=== PATIENT | female | born 1970 | race Caucasian/White ===

== ENCOUNTER 2019-07-04 10:14 | Emergency (ER) | payer OTHER ==
[~2019-07-04] VITALS: Ht 172.7 cm; Wt 85.0 kg
[~2019-07-04 10:14] MED LIST: ALPR-624 PO; METO50TA16 PO; TRAM50TA2 PO
[2019-07-04] MEDS ORDERED: orphenadrine citrate 60mg/2ml inj. IM ONE (12:20)
[2019-07-04] MEDS ORDERED: HYDROcodone/acetaminophen 10/325mg tab PO ONE (12:20)
[2019-07-04 12:48] VITALS: BP 155/91
[2019-07-04] MEDS ORDERED: IBUP-1984 PO (12:48)
[2019-07-04] MEDS ORDERED: HYDR-4353 PO (12:48)
[2019-07-05] MEDS ORDERED: METO25TA6 PO (20:16)
== END 2019-07-04 13:00 | disposition home or self-care (01) ==
LOC: ER 10:15
DX: M54.41 Lumbago with sciatica, right side (principal); I10 Essential (primary) hypertension; Z98.890 Other specified postprocedural states; Z88.1 Allergy status to other antibiotic agents; Z79.899 Other long term (current) drug therapy
CPT/HCPCS: 72100; 96372; 99283; J2360

== ENCOUNTER 2019-07-05 19:13 | Emergency (ER) | payer OTHER ==
[~2019-07-05] VITALS: Ht 172.7 cm; Wt 79.5 kg
[~2019-07-05 19:13] MED LIST changes: +HYDR-4353 PO; +IBUP-1984 PO
[2019-07-05] MEDS ORDERED: METO25TA6 PO (20:16)
[2019-07-05 20:36] VITALS: BP 164/100
== END 2019-07-05 20:30 | disposition home or self-care (01) ==
LOC: ER 19:14
DX: I10 Essential (primary) hypertension (principal); Z98.890 Other specified postprocedural states; Z88.1 Allergy status to other antibiotic agents; Z79.899 Other long term (current) drug therapy
CPT/HCPCS: 99283